=== PATIENT | female | born 1995 | race Hispanic/Latino ===

== ENCOUNTER 2024-12-30 01:12 | Emergency (ER) | payer OTHER ==
[~2024-12-30] VITALS: Ht 162.6 cm; Wt 58.1 kg
[2024-12-30 01:18] VITALS: PULSE 99; RESP 18; TEMP 99.5
[2024-12-30] MEDS: ACETAMINOPHEN 325 MG TAB PO ONE (02:19)
[2024-12-30] MEDS: SODIUM CHLORIDE 0.9% 1000ML 1,000 ML IV ONE (03:10)
[2024-12-30 04:05] VITALS: BP 132/71; PULSE 96; RESP 18; TEMP 99; O2SAT 100
== END 2024-12-30 04:05 | disposition home or self-care (01) ==
LOC: FSED 01:20
DX: O20.0 Threatened abortion (principal)
CPT/HCPCS: 36415; 76801; 76830; 80053; 81003; 81025; 84702; 85025; 99283; J7030